=== PATIENT | female | born 1965 | race Caucasian/White ===

== ENCOUNTER 2018-12-13 14:40 | Outpatient (CLI) | payer OTHER ==
--- NOTE | 2018-12-14 08:03 | MMO ---
Bilateral MAMMO Bilat Screen DDI. CLINICAL HISTORY: Patient is 53 years old and is seen for screening. The patient has no family history of breast cancer. The patient has no personal history of cancer. VIEWS: The views performed were: bilateral craniocaudal and bilateral mediolateral oblique. This study has been interpreted with the assistance of computer-aided detection. MAMMOGRAM FINDINGS: There are scattered fibroglandular densities. There are no suspicious masses, suspicious calcifications, or new areas of architectural distortion. IMPRESSION: THERE IS NO MAMMOGRAPHIC EVIDENCE OF MALIGNANCY. A ROUTINE FOLLOW-UP MAMMOGRAM IN 1 YEAR IS RECOMMENDED. ACR BI-RADS Category 1 - Negative MAMMOGRAPHY NOTE: 1. A negative mammogram report should not delay a biopsy if a dominant of clinically suspicious mass is present. 2. Approximately 10% to 15% of breast cancers are not detected by mammography. 3. Adenosis and dense breasts may obscure an underlying neoplasm.
== END 2018-12-13 14:41 | disposition home or self-care (01) ==
LOC: SCSMAMMO 14:40
PROVIDERS: ATTEND Family Medicine
DX: Z12.31 Encounter for screening mammogram for malignant neoplasm of breast (principal)
CPT/HCPCS: 77067

== ENCOUNTER 2019-01-24 12:40 | Day surgery (SDC) | payer OTHER ==
[2019-01-23 09:12] VITALS: BMI 55.3
[2019-01-24] MEDS ORDERED: PROPOFOL 200 MG/20 ML VIAL ONE (13:09)
--- NOTE | 2019-01-24 20:43 | OP ---
DATE OF PROCEDURE: 01/24/2019 PROCEDURES PERFORMED: Colonoscopy with polypectomy. INDICATION FOR PROCEDURE: Screening for malignant neoplasm of the colon. DESCRIPTION OF PROCEDURE: After the risks and benefits of the procedure were explained to the patient including risks of bleeding, infection, perforation, reactions to anesthesia, aspiration, and/or pain, informed consent was obtained. The patient was then taken to the endoscopy suite, where deep sedation was administered via propofol and anesthesia support. Once adequate sedation was achieved, a digital rectal examination was performed followed by introduction of the standard colonoscope into the rectum and advanced to the terminal ileum without difficulty. The patient tolerated the procedure well with no immediate perioperative complications. The quality of the prep was excellent with good visualization achieved. Upon completion of the procedure, all equipment was removed from the patient and the patient was transferred to Day Stay in satisfactory condition. FINDINGS: Digital rectal exam: [id number] size external hemorrhoids were seen on external examination as well as small perianal skin tags. Colon findings: Normal appearing mucosa was seen within the terminal ileum as well as at the appendiceal orifice and ileocecal valve. Normal appearing mucosa was then seen in the cecum, ascending colon, transverse colon, descending colon, and sigmoid colon. Two polyps measuring 3 to 8 mm in size were seen in the rectum and completely removed with cold snare polypectomy and snare cautery polypectomy respectively. They were both retrieved and placed in a specimen jar for evaluation. On rectal retroflexion, there were small hypertrophied anal papillae seen, but no other additional abnormalities. IMPRESSION: 1. Two rectal polyps measuring 3 mm and 8 mm in size, status post cold snare polypectomy and snare cautery polypectomy respectively. 2. [id number] size external hemorrhoids with perianal skin tags. 3. Hypertrophied anal papillae. RECOMMENDATIONS: 1. We will follow up on the biopsy results with repeat colonoscopy interval depending on the biopsy pathology report. 2. We would recommend a higher fiber diet given the presence of external hemorrhoids. 3. Continue medications as directed. 4. Follow up in the GI clinic as needed. Job ID: [id number]
== END 2019-01-24 15:25 | disposition home or self-care (01) ==
LOC: SDC 12:40
PROVIDERS: ATTEND Internal Medicine
PROC: 0DBP8ZZ Excision of Rectum, Via Natural or Artificial Opening Endoscopic (ICD-10-PCS; principal; 2019-01-24)
DX: Z12.11 Encounter for screening for malignant neoplasm of colon (principal); K62.1 Rectal polyp; K64.4 Residual hemorrhoidal skin tags; K62.89 Other specified diseases of anus and rectum; I10 Essential (primary) hypertension; E78.00 Pure hypercholesterolemia, unspecified; M19.90 Unspecified osteoarthritis, unspecified site; G89.29 Other chronic pain; E66.9 Obesity, unspecified; Z68.43 Body mass index [BMI] 50.0-59.9, adult; Z79.899 Other long term (current) drug therapy; Z91.040 Latex allergy status
CPT/HCPCS: 88305

== ENCOUNTER 2019-02-09 15:35 | Outpatient (CLI) | payer OTHER | END 2019-02-09 15:36 | disposition home or self-care (01) | LOC: DTY/OP 15:35 | PROVIDERS: ATTEND Surgery | DX: E66.01 Morbid (severe) obesity due to excess calories (principal) | CPT/HCPCS: 97802 ==

== ENCOUNTER 2019-03-20 09:59 | Outpatient (CLI) | payer OTHER | END 2019-03-20 10:00 | disposition home or self-care (01) | LOC: DTY/OP 09:59 | PROVIDERS: ATTEND Surgery | DX: E66.01 Morbid (severe) obesity due to excess calories (principal) | CPT/HCPCS: 97802 ==

== ENCOUNTER 2019-04-12 09:54 | Outpatient (CLI) | payer OTHER | END 2019-04-12 09:55 | disposition home or self-care (01) | LOC: DTY/OP 09:54 | PROVIDERS: ATTEND Surgery | DX: E66.01 Morbid (severe) obesity due to excess calories (principal) | CPT/HCPCS: 97802 ==

== ENCOUNTER 2019-05-12 09:57 | Outpatient (CLI) | payer OTHER | END 2019-05-12 09:58 | disposition home or self-care (01) | LOC: DTY/OP 09:57 | PROVIDERS: ATTEND Family Medicine | DX: E66.01 Morbid (severe) obesity due to excess calories (principal) | CPT/HCPCS: 97802 ==

== ENCOUNTER 2019-06-19 08:00 | Inpatient (IN) | payer OTHER ==
[2019-06-19 08:16] VITALS: BMI 49.7
[2019-06-29] MEDS ORDERED: Heparin 5,000 UNITS/ML VIAL ONE (06:57)
[2019-06-29] MEDS ORDERED: Bupivacaine/Epinephrine 0.25% 30 ML VIAL ONE (07:02)
[2019-06-29] MEDS ORDERED: Fentanyl 100 MCG/2 ML VIAL ONE ×4 (07:03→09:34)
[2019-06-29] MEDS ORDERED: Dextrose 5% in Water 1,000 ML IV PRN (08:28)
[2019-06-29] MEDS ORDERED: Dextrose 50% Abboject 50 ML SYRINGE SLOW IVP PRN (08:28)
[2019-06-29] MEDS ORDERED: Ondansetron PF 4 MG/2 ML Vial IVP PRN ×2 (08:28→09:03)
[2019-06-29] MEDS ORDERED: hydrALAZINE 20 MG/ML VIAL SLOW IVP PRN (08:28)
[2019-06-29] MEDS ORDERED: Promethazine HCl 25 MG/ML VIAL IM PRN ×2 (08:28→09:03)
[2019-06-29] MEDS ORDERED: Hydrocodone-Acetamin 15 ML UDCUP PO PRN (08:28)
[2019-06-29] MEDS ORDERED: diphenhydrAMINE 50 MG/ML VIAL IVP PRN ×2 (08:28→09:03)
[2019-06-29] MEDS ORDERED: Promethazine HCl 25 MG/ML VIAL ONE (08:55)
[2019-06-29] MEDS ORDERED: Naloxone HCl 0.4 mg/ml Vial IV PRN (09:03)
[2019-06-29] MEDS ORDERED: diphenhydrAMINE 50 MG/ML VIAL IM PRN (09:03)
[2019-06-29] MEDS ORDERED: Zolpidem Tartrate 5 MG TAB PO PRN (09:03)
[2019-06-29] MEDS ORDERED: Ketorolac Tromethamine 30 MG/ML VIAL IVP PRN (09:03)
[2019-06-29] MEDS ORDERED: fentaNYL Citrate/PF 2,000 MCG in Sodium Chloride 0.9% 60 ML IV PRN (09:03)
[2019-06-29] MEDS ORDERED: diphenhydrAMINE 25 MG CAP PO PRN (09:03)
[2019-06-29] MEDS ORDERED: Sodium Chloride 0.9% (PF) 10 ML VIAL FS PRN (09:15)
[2019-06-29] MEDS ORDERED: Communication Order-Pharmacy FS SCH (09:15)
[2019-06-29] MEDS ORDERED: Ketorolac Tromethamine 30 MG/ML VIAL IVP SCH (12:00)
--- NOTE | 2019-06-29 12:55 | OP ---
DATE OF PROCEDURE: 06/29/2019 PREOPERATIVE DIAGNOSIS: Morbid obesity. PROCEDURES PERFORMED: Laparoscopic sleeve gastrectomy, esophagogastroscopy. INDICATIONS: This is a 54-year-old female, morbidly obese, who has attempted multiple weight loss programs without success. FINDINGS: 38-[place] bougie used. DESCRIPTION OF PROCEDURE: After informed consent was obtained, the patient was taken to the operating room and given general endotracheal anesthesia. She was placed in supine position. Abdomen was prepped and draped in usual fashion. Local anesthesia infiltrated subcutaneously and deep and a 12 mm incision was performed approximately 8 inches above the xiphoid slightly to the left. Veress needle was inserted. Drop test was performed. Pneumoperitoneum was created to a pressure of 15 mmHg. A 0 degree laparoscope was inserted under direct vision and Rusty liver retractor inserted. Left lobe of liver retracted superiorly. Pylorus was identified. A 12 mm port placed on the right beneath it and two 12s placed in left subcostal. The omentum was taken off the greater curvature 5 cm from the pylorus utilizing the LigaSure. Short gastrics were divided with LigaSure and left crura defined with LigaSure. A 38[place] bougie inserted, directed into the antrum. The linear 60 mm green load stapler used to divide the antrum to the bougie, gold load along the bougie, and a series of blues through the angle of His. Intraoperative endoscopy was performed. The video endoscope inserted under direct vision and advanced into the sleeve. The staple line inspected. There was no bleeding. Staple line then tested by inflating the new stomach with pressurized air under water. There was no air leak. Stomach decompressed. Scope removed. The remnant stomach removed from the abdomen through the left lateral port site. The fascia closed with 0 Vicryl suture and the GraNee needle. Trocars and retractors removed. The skin closed with interrupted 4-0 Rapide. Dermabond applied. The patient tolerated the procedure well, transferred to Recovery in good condition. Sponge and needle count verified correct x2. Job ID: [id number]
[2019-06-29] MEDS: D5 1/2 NS w/20 mEq KCL 1,000 ML IV SCH (14:36)
[2019-06-29] MEDS: CEFAZOLIN 2 GM in Premix Bag 1 BAG IVPB SCH ×2 (14:37→22:03)
[2019-06-29] MEDS: Pantoprazole 40 MG VIAL IVP SCH (14:37)
[2019-06-30 05:01] LABS: #Lymphocytes 1.8 thou/uL (1.20-3.40); #Monocytes 0.5 thou/uL (0.11-0.59); #Neutrophils 8.3 thou/uL (1.40-6.50); %Eosinophils 0.1 % (0.0-10.0); %Neutrophils 77.9 % (42.0-75.0); Hemoglobin 13.2 g/dL (12.0-16.0); Mean Corpuscular HGB CONC 32.1 g/dL (32.0-36.0); Mean Corpuscular Hemoglobin 27.8 pg (27.0-31.0); Mean Corpuscular Volume 86.6 fL (78.0-98.0); Mean Platelet Volume 8.9 fL (7.4-10.4); Platelet Count 209 thou/uL (130-400); RBC Distribution Width 13.2 % (11.5-14.5); Red Blood Cell (RBC) Count 4.75 mill/uL (4.20-5.40); White Blood Cell (WBC) Count 10.6 thou/uL (4.8-10.8)
[2019-06-30 05:21] LABS: Anion Gap 11 mmol/L (10-20); BUN (Urea Nitrogen) 10 mg/dL (9.8-20.1); Calc. Creatinine Clearance 164 mL/min (70-130); Calcium 8.7 mg/dL (7.8-10.44); Carbon Dioxide 26 mmol/L (22-29); Chloride 105 mmol/L (98-107); Estimated GFR-MDRD 60; Glucose 133 mg/dL (70-105); Potassium 4.4 mmol/L (3.5-5.1); Sodium 138 mmol/L (136-145)
[2019-06-30] MEDS ORDERED: Enoxaparin Sodium 40 MG/0.4 ML SYRINGE SC SCH (06:00)
--- NOTE | 2019-06-30 08:12 | RAD ---
EXAM: Single contrast Upper GI HISTORY: Status post gastric sleeve procedure. Evaluate for enteric leak. COMPARISON: None FINDINGS: A single contrast upper GI was performed. Esophageal motility is normal. No mucosal lesions are seen in the esophagus. No extrinsic compression on the esophagus is seen. No hiatal hernia. No gastroesophageal reflux. Patient is status post gastric sleeve. The contrast passes through the stomach into the duodenum without difficulty. The duodenum is normal in appearance without focal abnormality. IMPRESSION: Status post gastric sleeve without evidence of complication.
[2019-06-30 08:14] VITALS: BP 164/88; TEMP 97.6
[2019-06-30] MEDS: Pantoprazole 40 MG VIAL IVP SCH (10:00)
[2019-06-30] MEDS ORDERED: Hydrocodone-Acetamin 15 ML UDCUP PO PRN (10:58)
[2019-06-30] MEDS ORDERED: GASTROGRAFIN 30 ML BOT ONE (11:43)
[2019-06-30] MEDS: D5 1/2 NS w/20 mEq KCL 1,000 ML IV SCH (12:59)
[2019-07-01] MEDS ORDERED: Enoxaparin Sodium 40 MG/0.4 ML SYRINGE SC SCH (09:00)
--- NOTE | 2019-07-03 15:25 | DIS ---
DATE OF ADMISSION: 06/29/2019 DATE OF DISCHARGE: 06/30/2019 DISCHARGE DIAGNOSIS: Morbid obesity. PROCEDURES DURING ADMISSION: Laparoscopic sleeve gastrectomy, intraoperative esophagogastroscopy, and postoperative Gastrografin swallow. HOSPITAL COURSE: The patient was admitted, taken to the operating room, where she underwent a sleeve gastrectomy. Postoperatively, x-ray was fine. She was started on liquids, tolerating well. Her pain is controlled on p.o. medications. She is discharged home on hydrocodone and Zofran. She will follow up with me in 2 weeks. Job ID: [id number]
== END 2019-06-30 12:50 | disposition home or self-care (01) | DRG 621 ==
LOC: SURG A 06-29 05:39
PROVIDERS: ADMIT Surgery; ATTEND Surgery
PROC: 0DB64Z3 Excision of Stomach, Percutaneous Endoscopic Approach, Vertical (ICD-10-PCS; principal; 2019-06-29)
PROC: 0DJ08ZZ Inspection of Upper Intestinal Tract, Via Natural or Artificial Opening Endoscopic (ICD-10-PCS; 2019-06-29)
DX: E66.01 Morbid (severe) obesity due to excess calories (principal); Z68.42 Body mass index [BMI] 45.0-49.9, adult; G89.29 Other chronic pain; I10 Essential (primary) hypertension; G43.909 Migraine, unspecified, not intractable, without status migrainosus; F32.9 Major depressive disorder, single episode, unspecified
CPT/HCPCS: 36415; 74241; 80048; 85025; 88307; 88312; C9113; J0131; J0690; J1644; J1650; J1885; J2405; J2550; J3010; Q9963

== ENCOUNTER 2019-06-19 08:27 | Outpatient (CLI) | payer OTHER ==
--- NOTE | 2019-06-19 09:33 | RAD ---
EXAM: Chest PA and lateral: HISTORY: Preop COMPARISON: none FINDINGS: Lung marie are clear. Vascular markings are normal. Heart and mediastinum appear unremarkable. Osseous structures are unremarkable. IMPRESSION: Unremarkable chest
[2019-06-19 10:05] LABS: #Eosinphils 0.1 thou/uL (0.0-0.7); #Lymphocytes 2.7 thou/uL (1.20-3.40); #Monocytes 0.4 thou/uL (0.11-0.59); #Neutrophils 2.7 thou/uL (1.40-6.50); %Basophils 0.5 % (0.0-1.0); %Eosinophils 2.1 % (0.0-10.0); %Lymphocytes 45.7 % (21.0-51.0); %Monocytes 7.1 % (0.0-10.0); %Neutrophils 44.6 % (42.0-75.0); Hemoglobin 14.2 g/dL (12.0-16.0); Mean Corpuscular HGB CONC 32.2 g/dL (32.0-36.0); Mean Corpuscular Hemoglobin 27.5 pg (27.0-31.0); Mean Corpuscular Volume 85.6 fL (78.0-98.0); Mean Platelet Volume 8.6 fL (7.4-10.4); Platelet Count 223 thou/uL (130-400); RBC Distribution Width 13.3 % (11.5-14.5); Red Blood Cell (RBC) Count 5.14 mill/uL (4.20-5.40); White Blood Cell (WBC) Count 5.9 thou/uL (4.8-10.8)
[2019-06-19 10:10] LABS: Hemoglobin A1c 5.4 % (4.0-6.0)
[2019-06-19 10:18] LABS: ALT (SGPT) 18 U/L (8-55); AST (SGOT) 15 U/L (5-34); Albumin 3.9 g/dL (3.5-5.0); Alkaline Phosphatase 80 U/L (40-110); Anion Gap 12 mmol/L (10-20); BUN (Urea Nitrogen) 16 mg/dL (9.8-20.1); Bilirubin, Direct 0.3 mg/dL (0.1-0.3); Bilirubin, Total 0.5 mg/dL (0.2-1.2); Calc. Creatinine Clearance 0 mL/min (70-130); Calcium 9.1 mg/dL (7.8-10.44); Carbon Dioxide 26 mmol/L (22-29); Chloride 104 mmol/L (98-107); Estimated GFR-MDRD 60; Globulin 3.9 g/dL (2.4-3.5); Glucose 101 mg/dL (70-105); Potassium 3.6 mmol/L (3.5-5.1); Protein, Total 7.8 g/dL (6.0-8.3); Sodium 138 mmol/L (136-145)
== END 2019-06-19 08:28 | disposition home or self-care (01) ==
LOC: LABBT 08:27
PROVIDERS: ATTEND Surgery
DX: Z01.818 Encounter for other preprocedural examination (principal); E66.01 Morbid (severe) obesity due to excess calories
CPT/HCPCS: 71046; 80053; 80076; 83036; 85025; 93005; 93010